=== PATIENT | male | born 1970 | race Caucasian/White ===

== ENCOUNTER 2019-12-05 12:05 | Emergency (ER) | payer SELFPAY ==
[2019-12-05 12:11] VITALS: BP 123/73
[2019-12-05] MEDS ORDERED: LIDOCAINE 2% VISCOUS SOLN 15 ML UDCUP PO ONE (13:39)
[2019-12-05] MEDS ORDERED: CLINDAMYCIN HCL 150 MG CAPSULE PO ONE (13:39)
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
== END 2019-12-05 13:45 | disposition home or self-care (01) ==
LOC: ER 12:05
DX: K08.89 Other specified disorders of teeth and supporting structures (principal); K02.9 Dental caries, unspecified; Z79.899 Other long term (current) drug therapy; Z88.8 Allergy status to other drugs, medicaments and biological substances
CPT/HCPCS: 99282; J3490

== ENCOUNTER 2020-05-24 13:40 | Emergency (ER) | payer OTHER ==
[2020-05-24 13:50] VITALS: BP 145/89
[2020-05-24] MEDS ORDERED: HYDROCODONE/ACETAMINOPHEN 5-325 MG TABLET PO ONE (14:15)
[2020-05-24] MEDS ORDERED: METHOCARBAMOL 750 MG TABLET PO ONE (14:15)
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
== END 2020-05-24 15:56 | disposition home or self-care (01) ==
LOC: ER 13:40
DX: S16.1XXA Strain of muscle, fascia and tendon at neck level, initial encounter (principal); M54.2 Cervicalgia; V87.7XXA Person injured in collision between other specified motor vehicles (traffic), initial encounter
CPT/HCPCS: 99284; 72125; J3490